=== PATIENT | female | born 1990 | race Caucasian/White ===

== ENCOUNTER 2023-07-05 23:43 | Emergency (ER) | payer SELFPAY ==
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
[2023-07-05 23:42] VITALS: BP 122/89; PULSE 90; RESP 16; TEMP 36.6; O2SAT 99
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
[2023-07-06 00:37] VITALS: BP 117/76; PULSE 67; RESP 15; O2SAT 100
[2023-07-06] MEDS: HALOPERIDOL LACTATE 5 MG/ML VIAL IM (00:37)
[2023-07-06 01:03] LABS: Ethanol 531 mg/dL (<10)
[2023-07-06 01:37] VITALS: BP 116/64; PULSE 74; RESP 14; O2SAT 100
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
[2023-07-06 05:40] VITALS: BP 116/76; PULSE 87; RESP 14; O2SAT 98
[2023-07-06] MEDS: NICOTINE (*PBKC) 21 MG PATCH 1 PATCH TRANSDERM (05:41)
[2023-07-06 07:46] VITALS: BP 114/66; PULSE 88; RESP 19; O2SAT 97
[2023-07-06 09:50] VITALS: BP 114/73; PULSE 76; RESP 17; O2SAT 99
[2023-07-06 12:07] VITALS: BP 120/72; PULSE 80; RESP 16; O2SAT 98
== END 2023-07-06 12:09 | disposition home or self-care (01) ==
PROVIDERS: Emergency Provider Preventive Medicine Aerospace Medicine
DX: F10.120 Alcohol abuse with intoxication, uncomplicated (principal); Y90.8 Blood alcohol level of 240 mg/100 ml or more; F17.200 Nicotine dependence, unspecified, uncomplicated
CPT/HCPCS: 36415; 70450; 72125; 80307; 96372; 99284; A9270; J1630